=== PATIENT | female | born 1960 | race Caucasian/White ===

== ENCOUNTER 2017-08-26 07:47 | Observation (INO) | payer BC ==
[2017-08-26] MEDS ORDERED: SOD CHLORIDE 0.9% 1,000 ML IV (12:00)
[2017-08-26] MEDS ORDERED: CEFAZOLIN 1 GM/50 ML (PMX) 50 ML IVPB (12:00)
[2017-08-26] MEDS ORDERED: FENTAnyl 50 MCG/ML VIAL IV ×3 (13:30)
[2017-08-26] MEDS ORDERED: METOCLOPRAMIDE 10 MG INJ IV (13:30)
[2017-08-26] MEDS ORDERED: MEPERIDINE 25 MG INJ IV (13:30)
[2017-08-26] MEDS ORDERED: LABETALOL HCL 20MG INJ IV (13:30)
[2017-08-26] MEDS ORDERED: OXYCODONE/ACETAMINOPHEN (5/325) TAB PO ×2 (13:30)
[2017-08-26] MEDS ORDERED: HYDROmorphONE 1 MG/5 ML IV SYRINGE IV ×3 (13:30)
[2017-08-26] MEDS ORDERED: DIPHENHYDRAMINE 50 MG INJ IV (13:30)
[2017-08-26] MEDS ORDERED: EPHEDrine SULFATE 50 MG/5 ML SYG IV (13:30)
[2017-08-26] MEDS ORDERED: MIDAZOLAM 1 MG/ML 2 ML INJ IV (13:30)
[2017-08-26] MEDS ORDERED: ONDANSETRON 4 MG INJ IV ×2 (13:30→15:30)
[2017-08-26] MEDS ORDERED: hydrALAzine 20 MG INJ IV (13:30)
[2017-08-26] MEDS ORDERED: CEFAZOLIN 1 GM INJ (13:37)
[2017-08-26] MEDS ORDERED: PROPOFOL 20 ML (13:37)
[2017-08-26] MEDS ORDERED: LIDOCAINE 2% (SDV) 5 ML INJ (13:37)
[2017-08-26] MEDS ORDERED: MEPERIDINE 100 MG INJ (13:38)
[2017-08-26] MEDS ORDERED: METOCLOPRAMIDE 10 MG INJ (13:39)
[2017-08-26] MEDS ORDERED: ONDANSETRON 4 MG INJ (13:39)
[2017-08-26] MEDS ORDERED: EPHEDrine 25 MG/5 ML SYG (14:45)
[2017-08-26] MEDS: ISOSULFAN BLUE 1% 5 ML INJ SC (15:03)
[2017-08-26] MEDS ORDERED: morphine 2 MG INJ IV ×2 (15:30→19:00)
[2017-08-26] MEDS ORDERED: ACETAMINOPHEN 1000MG/100ML IV 100 ML IVPB (15:30)
[2017-08-26] MEDS: D5W-0.45 NACL + KCL 20 MEQ 1,000 ML IV (20:16)
[2017-08-26] MEDS: HYDROCODONE/APAP (5/325) TAB PO (22:04)
[2017-08-27] MEDS: D5W-0.45 NACL + KCL 20 MEQ 1,000 ML IV ×2 (04:26→07:11)
[2017-08-27 06:05] LABS: ADD MAN DIFF? NO
[2017-08-27 06:11] LABS: BASOPHILS % 0.4 % (0.0-2.0); EOSINOPHILS # 0.1 10^3/ul (0.0-0.5); EOSINOPHILS % 0.7 % (0.0-7.0); HEMATOCRIT 34.3 % (37.0-47.0); HEMOGLOBIN 10.8 g/dl (12.0-16.0); LYMPHOCYTES # 1.2 10^3/ul (0.8-2.9); LYMPHOCYTES % 16.7 % (15.0-51.0); MEAN CORPUSCULAR HEMOGLOBIN 25.9 pg (29.0-33.0); MEAN CORPUSCULAR HGB CONC 31.5 g/dl (32.0-37.0); MEAN CORPUSCULAR VOLUME 82.3 fl (82.0-101.0); MEAN PLATELET VOLUME 9.3 fl (7.4-10.4); MONOCYTE # 0.4 10^3/ul (0.3-0.9); MONOCYTES % 5.1 % (0.0-11.0); NEUTROPHIL # 5.4 10^3/ul (1.6-7.5); PLATELET COUNT 217 10^3/UL (140-415); RED BLOOD COUNT 4.17 10^6/ul (4.20-5.40); RED CELL DISTRIBUTION WIDTH 15.5 % (11.5-14.5)
[2017-08-27] MEDS ORDERED: HYDROCODONE/APAP (5/325) TAB PO (08:00)
[2017-08-27 08:15] LABS: ANION GAP 15 (8-16); BLOOD UREA NITROGEN 8 mg/dl (7-20); CALCIUM 8.5 mg/dl (8.4-10.2); CARBON DIOXIDE 23 mmol/L (21-31); CHLORIDE 108 mmol/L (97-110); CREATININE 0.62 mg/dl (0.44-1.00); GLUCOSE 115 mg/dl (70-220); POTASSIUM 4.5 mmol/L (3.5-5.1); SODIUM 141 mmol/L (135-144)
[2017-08-27] MEDS: ACETAMINOPHEN 325 MG TAB PO (10:07)
== END 2017-08-27 13:15 | disposition home or self-care (01) ==
LOC: SDS 07:47 → MS2 15:12
DX: C50.412 Malignant neoplasm of upper-outer quadrant of left female breast (principal); Z17.0 Estrogen receptor positive status [ER+]; M81.0 Age-related osteoporosis without current pathological fracture; M19.90 Unspecified osteoarthritis, unspecified site
CPT/HCPCS: 19301; 71045; 80048; 85025; 88307; 88331; 88342; 93005

== ENCOUNTER 2018-07-29 07:35 | Day surgery (SDC) | payer BC ==
[2018-07-29] MEDS ORDERED: LIDOCAINE 4% SOLUTION 50 ML BTL (09:03)
[2018-07-29] MEDS ORDERED: ONDANSETRON 4 MG INJ (09:11)
[2018-07-29] MEDS ORDERED: FENTAnyl 50 MCG/ML VIAL (10:08)
[2018-07-29] MEDS ORDERED: MIDAZOLAM 1 MG/ML 2 ML INJ ×2 (10:08)
== END 2018-07-29 12:48 | disposition home or self-care (01) ==
LOC: GIL 07:35
DX: Z12.11 Encounter for screening for malignant neoplasm of colon (principal); K29.50 Unspecified chronic gastritis without bleeding; K20.8 Other esophagitis
CPT/HCPCS: 43239; 88305; 88312